=== PATIENT | female | born 1980 | race Hispanic/Latino ===

== ENCOUNTER 2020-05-17 06:14 | Observation (INO) | payer BC ==
[2020-05-12 12:36] LABS: Basophils % (Auto) 0.6 % (0.0-1.8); Eosinophils % (Auto) 0.4 % (0.0-4.3); Hematocrit 39.5 % (30.3-42.9); Hemoglobin 13.6 gm/dl (10.1-14.3); Lymphocytes # (Auto) 1.8 K/mm3 (1.2-5.4); Lymphocytes % (Auto) 24.7 % (13.4-35.0); Mean Corpuscular HGB Conc 35 % (30-34); Mean Corpuscular Volume 94 fl (79-97); Monocytes # (Auto) 0.3 K/mm3 (0.0-0.8); Monocytes % (Auto) 3.6 % (0.0-7.3); Platelet Count 202 K/mm3 (140-440); Red Blood Count 4.21 M/mm3 (3.65-5.03); Red Cell Distribution Width 12.9 % (13.2-15.2)
[~2020-05-17 06:14] MED LIST: ACETAMINOPHEN 500 MG TAB PO SCH; CELECOXIB 200 MG CAP PO NR; GABAPENTIN 300 MG CAP PO NR; LACTATED RINGERS 1,000 ML IV SCH; MIDAZOLAM 2 MG/2 ML INJ IV NR; SCOPOLAMINE TRANSDERMAL PATCH 72 HR TD NR
[2020-05-17] MEDS ORDERED: BACTERIOSTATIC SODIUM CHLORIDE 0.9% 30 ML VIAL INFILTRATI ONE (06:25)
--- NOTE | 2020-05-17 07:00 | Anesthesia Consultation ---
Anesthesia Consult and Med Hx Date of service: 05/17/20 - Airway Anesthetic Teeth Evaluation: Good ROM Head & Neck: Adequate Mental/Hyoid Distance: Adequate Mallampati Class: Class II Intubation Access Assessment: Good - Pulmonary Exam CTA: Yes - Cardiac Exam Cardiac Exam: RRR - Pre-Operative Health Status ASA Pre-Surgery Classification: ASA2 Proposed Anesthetic Plan: General - Pulmonary Hx Smoking: Yes (Former) - Central Nervous System Hx Back Pain: Yes Hx Psychiatric Problems: No - Other Systems Hx Cancer: No Hx Obesity: Yes
--- NOTE | 2020-05-17 07:00 | Anesthesia Day of Surgery ---
Anesthesia Day of Surgery - Day of Surgery Patient Examined: Yes Patient H&P Reviewed: Yes Patient is NPO: Yes
[2020-05-17] MEDS ORDERED: METHYLENE BLUE 50 MG/10 ML AMP ONE (07:13)
[2020-05-17] MEDS ORDERED: BUPIVACAINE/PF (0.25%) 2.5 MG/ML 10 ML VIAL INFILTRATI ONE ×2 (07:13→09:08)
[2020-05-17] MEDS ORDERED: HYDROmorphone 1 MG/1 ML INJ ONE (07:25)
[2020-05-17] MEDS ORDERED: propofoL 200 MG/20 ML VIAL IV ONE (07:25)
[2020-05-17] MEDS ORDERED: LIDOCAINE MPF (2%) 20 MG/1 ML VIAL 5 ML ONE (07:25)
[2020-05-17] MEDS ORDERED: ROCURONIUM 50 MG/5 ML INJ IV ONE ×2 (07:25→09:33)
[2020-05-17] MEDS ORDERED: ONDANSETRON 4 MG/2 ML INJ IV PRN ×2 (08:21→13:00)
--- NOTE | 2020-05-17 08:24 | History and Physical Report ---
History of Present Illness Date of examination: 05/17/20 Chief complaint: I have severe pelvic pain History of present illness: Pt is a 39 year old who presents with heavy cycles and pelvic pain.She is looking for definitive therapy. Ultrasound reveals enlarged uterus with signs of adenlmyosis. Pt has opted for definitive therapy. Past History Past Medical History: No medical history Past Surgical History: cholecystectomy, Other (tubal) Social history: Medications and Allergies Allergies Allergy/AdvReac Type Severity Reaction Status Date / Time No Known Allergies Allergy Unverified 05/10/20 17:59 Home Medications Medication Instructions Recorded Confirmed Last Taken Type tiZANidine [Zanaflex 4mg TAB] 4 mg PO BID 05/10/20 05/17/20 05/16/20 21:00 History Active Meds: Active Medications Acetaminophen (Acetaminophen 500 Mg Tab) 1,000 mg PO PREOP EZEQUIEL Stop: 05/17/20 23:00 Last Admin: 05/17/20 06:30 Dose: 1,000 mg Documented by: Cefazolin Sodium (Cefazolin/Sterile Water 2 Gm/20 Ml Syringe) 2 gm IV PREOP NR Stop: 05/17/20 23:00 Celecoxib (Celecoxib 200 Mg Cap) 200 mg PO PREOP NR Stop: 05/17/20 23:00 Last Admin: 05/17/20 06:30 Dose: 200 mg Documented by: Gabapentin (Gabapentin 300 Mg Cap) 300 mg PO PREOP NR Stop: 05/17/20 23:00 Last Admin: 05/17/20 06:30 Dose: 300 mg Documented by: Lactated Ringer's (Lactated Ringers) 1,000 mls @ 100 mls/hr IV DIRECT EZEQUIEL Stop: 05/17/20 23:59 Last Admin: 05/17/20 07:00 Dose: 100 mls/hr Documented by: Midazolam HCl (Midazolam 2 Mg/2 Ml Inj) 2 mg IV PREOP NR Stop: 05/17/20 23:00 Last Admin: 05/17/20 07:15 Dose: 2 mg Documented by: Scopolamine (Scopolamine Transdermal Patch 72 Hr) 1 each TD PREOP NR Stop: 05/17/20 23:00 Last Admin: 05/17/20 06:35 Dose: 1 each Documented by: Review of Systems - Constitutional fatigue - Genitourinary Genitourinary: dyspareunia, dysmenorrhea, pelvic pain Menstruation: period normal, menses 1-7 days Exam Vital Signs Temp Pulse Resp BP Pulse Ox 98.6 F 69 20 133/74 100 05/12/20 11:50 05/12/20 11:50 05/12/20 11:50 05/12/20 11:50 05/12/20 11:50 - General physical appearance Positive: well developed, well nourished, no distress - Eyes Positive: PERRL, normal occular movement - Neck Positive: no masses, no bruits, trachea midline, no venous distension - Respiratory Positive: normal expansion, normal respiratory effort, clear to auscultation - Cardiovascular Rhythm: regular Heart Sounds: Present: S1 & S2. Absent: rub, click - Extremities Extremities: no ischemia, pulses symmetrical, No edema - Abdomen Abdomen: Present: soft, bowel sounds normal. Absent: tender, distended Hernia: none - Genitourinary Female Genitourinary: other (tender, slightly enlarged uterus) Results - Labs 05/12/20 11:55 Assessment and Plan Pt here for laparoscopic hysterectomy secondary to worsening pelvic pain. Pt signed consents. Will proceed as planned
[2020-05-17] MEDS ORDERED: ceFAZolin/STERILE WATER 2 GM/20 ML SYRINGE IV NR (09:00)
[2020-05-17] MEDS ORDERED: ceFAZolin/Water 2 GM/20 ML 2 GM/20 ML SYRINGE IV NR (09:00)
[2020-05-17] MEDS ORDERED: SODIUM CHLORIDE 0.9% IRR 1,500 ML BOTTLE IR ONE (09:08)
[2020-05-17] MEDS ORDERED: SODIUM CHLORIDE 0.9% IRRIG SOLN 2000 ML IR ONE (09:16)
[2020-05-17] MEDS ORDERED: dexAMETHasone 20 MG/5 ML VIAL ONE (09:33)
[2020-05-17] MEDS ORDERED: ONDANSETRON 4 MG/2 ML INJ ONE (09:33)
[2020-05-17] MEDS ORDERED: KETOROLAC 30 MG/1 ML INJ ONE (10:37)
[2020-05-17] MEDS ORDERED: GLYCOPYRROLATE 0.4 MG/2 ML INJ ONE (10:37)
[2020-05-17] MEDS ORDERED: NEOSTIGMINE 10MG/10 ML INJ MDV ONE (10:37)
--- NOTE | 2020-05-17 10:47 | Post Operative Note ---
Pre-op diagnosis: Pelvic pain, pelvic congestion syndrome Post-op diagnosis: same (with presence of foreign bodies in pelvis) Findings: Normal size uterus with increased vasculature and presence of adenomyosis along with bilateral filshie clips on each tube. Procedure: total laparoscopic hysterectomy Anesthesia: HARIKA Surgeon: HELENA EL Estimated blood loss: other (200) Pathology: list (uterus, tubes and cervix) Specimen disposition: to lab Condition: stable Disposition: PACU
[2020-05-17] MEDS: HYDROmorphone 1 MG/1 ML INJ IV PRN ×2 (11:05→11:15)
--- NOTE | 2020-05-17 11:05 | Operative Report ---
Operative Report Operative Report: Preoperative diagnosis:Pelvic pain, pelvic congestion syndrome Postoperative diagnosis: Procedure:Total laparoscopic hysterectomy Surgeon: Jessica Cabrera Percussion Instructor: Anesthesia: General EBL: 200 mL IV fluids: 800 mL Urine output: 200 mL Findings: Normal size uterus with bilateral filschie clips on each tube Specimens: Uterus, fallopian tubes, and cervix Complications: None The patient was properly identified as herself. She was then taken to the OR with IV running and in place. She was given general anesthesia without difficulty. She was placed in a dorsal lithotomy position. She was then prepped and draped in normal sterile fashion. Attention was turned to the patient's vagina. A Castro catheter was inserted into her bladder. The speculum was then placed the patient's vagina. The cervix was visualized and grasped with tenaculum. The medium Vesicare retractor was placed into the patient's uterus and the bulb inflated. The surgeon's gloves were changed and attention turned to the patient's abdomen. A small incision was made in the patient's umbilicus incision a 5 mm trocar was placed. The laparoscope confirmed intra- abdominal placement. The abdomen was insufflated with CO2 gas to approximately 25 mmHg. 2 additional incisions were made in the right and left lower quadran ts. Through both of these incisions 5 mm trochars were placed. Attention was turned to the right adnexa. Attention was then turned to the right pelvic sidewall. The broad ligament was transected and cauterized with notice of the formentioned clip in place. Following this the round ligament was cauterized and transected as well and the bladder flap was initiated on the right. The utero- ovarian artery was also cauterixzed and transected. Attention was then turned to the left sidewall. The broad, round and uteroovarian ligaments were all cauterized and transected. The bladder flap was completed as the left side was taken down to meet the right. The uterine arteries were skeletonized bilaterally and cauterized and transected. There was significant neovascularization surrounding the uterus. At this point the colpotomy incision was initiated using the J hook. A circumferential incision was made around the cup until the uterus was completely free. Attention was then turned back to the vagina. a weighted speculum was placed in the vagina and the manipulator was moved the the point where the cervix could be seen. The cervix was grasped with a single tooth tenaculum and delivered in one piece through the vagina along with the ovary. The vaginal cuff was then closed in a running locked fashion with 2.0 vicryl. A second look was taken inside the abdomen with the laparosope. There was e xcellent hemostasis. Rosa Maria was placed on the vaginal cuff. At this point the abdomen was deflated. All instruments were then removed from the abdomen. The incisions were then closed with 4-0 Monocryl. The incisions were also injected with quarter percent Marcaine. The patient tolerated the procedure well she was then awakened and taken recovery in stable condition. Sponge needle and instrument counts were correct 2.
[2020-05-17] MEDS ORDERED: ACETAMINOPHEN 325 MG TAB PO PRN (13:00)
[2020-05-17] MEDS ORDERED: IBUPROFEN 800 MG TAB PO PRN (13:00)
[2020-05-17] MEDS ORDERED: oxyCODONE /ACETAMINOPHEN 5-325MG TAB PO PRN (13:00)
--- NOTE | 2020-05-17 13:01 | Post Anesthesia Evaluation ---
- Post Anesthesia Evaluation Patient Participated: Yes Airway Patent: Yes Stable Respiratory Function: Yes Nausea/Vomiting: No Temp > 96.8F: Yes Pain Manageable: Yes Adequeate Hydration: Yes Anesthesia Complications: No
[2020-05-17] MEDS: KETOROLAC 30 MG/1 ML INJ IV SCH ×2 (15:17→23:19)
[2020-05-17] MEDS: D5W/LACTATED RINGERS 1,000 ML IV SCH ×2 (15:18→23:15)
[2020-05-18 06:25] LABS: Hematocrit 33.2 % (30.3-42.9); Hemoglobin 11.8 gm/dl (10.1-14.3)
[2020-05-18] MEDS: KETOROLAC 30 MG/1 ML INJ IV SCH (06:47)
--- NOTE | 2020-05-18 09:06 | Progress Note ---
Subjective - Subjective Date of service: 05/18/20 Interval history: Pt is a 39 year old who presents with heavy cycles and pelvic pain.She is looking for definitive therapy. Ultrasound reveals enlarged uterus with signs of adenlmyosis. Pt has opted for definitive therapy. Patient reports: appetite normal, voiding normally, pain well controlled, flatus, ambulating normally Objective - Vital Signs Latest vital signs: Vital Signs Temp Pulse Pulse Resp BP BP Pulse Ox 05/18/20 06:47 20 05/18/20 04:42 98.8 F 58 L 18 108/57 96 05/18/20 00:47 98.3 F 68 16 112/54 96 05/17/20 23:19 20 05/17/20 20:40 98.4 F 78 18 129/58 95 05/17/20 19:50 20 05/17/20 16:15 97.9 F 73 18 129/77 97 05/17/20 15:00 63 05/17/20 13:00 98.5 F 61 19 129/67 99 05/17/20 12:04 60 99 05/17/20 11:30 97.2 F L 62 14 130/61 100 05/17/20 11:15 67 16 126/64 100 05/17/20 11:00 73 16 127/63 100 05/17/20 10:55 77 16 120/66 100 05/17/20 10:51 97.1 F L 82 16 120/63 99 Intake and Output 05/17/20 05/18/20 05/18/20 22:59 06:59 14:59 Intake Total 840 1953.75 Output Total 1300 1100 Balance -460 853.75 Intake: IV 993.75 D5lr 1,000 ml @ 125 mls/ 993.75 hr IV DIRECT EZEQUIEL Rx#: [id number] Oral 840 360 Intake, Free Water 600 Output: Urine 1300 1100 Indwelling Catheter 1300 900 Void 200 Other: Total, Intake Amount 360 360 Total, Output Amount 900 200 Voiding Method Indwelling Catheter # Bowel Movements 0
--- NOTE | 2020-05-18 09:06 | Discharge Summary ---
Providers - Providers Date of Admission: 05/17/20 10:48 Date of discharge: 05/18/20 Attending physician: HELENA EL Primary care physician: [facility] Hospitalization Reason for admission: other (pelvic pain) Procedure: other (Total Lap Hysterectomy) Incision: normal, dry, intact Hospital course: Unremarkable Condition at discharge: Good Disposition: DC-01 TO HOME OR SELFCARE Plan - Discharge Medications Prescriptions: Docusate Sodium [Colace] 100 mg PO BID PRN #60 capsule PRN Reason: Constipation Ibuprofen [Motrin] 800 mg PO Q8HR PRN #40 tablet PRN Reason: Pain, Mild (1-3) oxyCODONE /ACETAMINOPHEN [Percocet 5/325] 2 tab PO Q6HR PRN #40 tablet PRN Reason: Pain - Provider Discharge Summary Activity: routine, no sex for 6 weeks, no heavy lifting 4 weeks, no strenuous exercise, other (nothing per vagina) Diet: routine Instructions: routine Additional instructions: [] Smoking cessation referral if applicable(refer to patient education folder for contact #) [] Refer to [facility] Booklet Call your doctor immediately for: * Fever > 100.5 * Heavy vaginal bleeding ( >1 pad per hour) * Severe persistent headache * Shortness of breath * Reddened, hot, painful area to leg or breast * Drainage or odor from incision. * Keep incision clean and dry at all times and follow doctor's instructions regarding bathing/showering - Follow up plan Follow up: HELENA EL MD [Staff Physician] - 14 Days
[2020-05-18 10:30] VITALS: BP 131/72
== END 2020-05-18 10:45 | disposition home or self-care (01) ==
LOC: OR 06:14 → OB 10:48
PROVIDERS: ADMIT Obstetrics & Gynecology; ATTEND Obstetrics & Gynecology
DX: N94.89 Other specified conditions associated with female genital organs and menstrual cycle (principal); Z20.822 Contact with and (suspected) exposure to COVID-19; R10.2 Pelvic and perineal pain; Z90.49 Acquired absence of other specified parts of digestive tract
CPT/HCPCS: 36415; 58571; 84703; 85014; 85018; 85025; 86850; 86900; 86901; 88307; 96361; 96374; 96375; 96376; A4217; G0378; J1100; J1170; J1885; J2250; J2704; J2710; J7120; J7121; U0003; J2405; Q9968